=== PATIENT | male | born 1985 | race Hispanic/Latino ===

== ENCOUNTER 2024-02-01 16:21 | Emergency (ER) | payer SELFPAY ==
[2024-02-01] MEDS ORDERED: HYDROCODONE/APAP 5/325 MG TAB ONE (16:36)
[2024-02-01] MEDS ORDERED: DIAZEPAM 5 MG TABLET ONE (16:36)
--- NOTE | 2024-02-01 16:58 | RAD REPORT ---
Stone Protocol CLINICAL INDICATION: Male, 38 years old.FLANK PAIN TECHNIQUE: CT abdomen and pelvis was performed, without IV contrast, as per department protocol using a CT stone protocol. Axial, sagittal and coronal reconstructions were obtained. One or more of the following dose reduction techniques were used: Automated exposure control, adjustment of the mA and/o r kV according to the patient size, and/or iterative reconstruction. Unless otherwise specified, incidental findings do not require dedicated imaging follow-up. [id number]. IV CONTRAST: Not administered. COMPARISON: None FINDINGS: The lack of intravenous contrast limits the sensitivity of this exam for evaluation of solid visceral organs, vascular structures, and retroperitoneum. LOWER CHEST: The visualized lung bases are clear. Mild circumferential thickening of the distal esoph parish. LIVER: Hepatic steatosis. GALLBLADDER/BILE DUCTS: No biliary ductal dilatation.? PANCREAS: No mass, ductal dilation, or gayle-pancreatic fluid. SPLEEN: Normal size. No focal lesion. ADRENALS: Normal; no mass. KIDNEYS AND URETERS: Normal size and contour. No hydronephrosis. URINARY BLADDER: Nonspecific circumferential bladder wall thickening. GASTROINTESTINAL TRACT: Stomach is non-dilated. Small bowel has normal course and caliber. No colonic wall thickening or pericolonic inflammatory changes. PERITONEUM: No free fluid. ABDOMINAL AORTA AND OTHER VESSELS: Normal caliber aorta and IVC. REPRODUCTIVE ORGANS: No pathologic process. MUSCULOSKELETAL: No acute or suspicious osseous abnormality. ADDITIONAL FINDINGS: None. IMPRESSION: No acute or significant abnormalities in the abdomen or pelvis, with evaluation limited by lack of IV contrast. No urinary tract calculi. No appendicitis.
[2024-02-01 17:22] LABS: Specific Gravity > 1.030 (1.005-1.030); Sqamous Epithelial None Seen /HPF (None Seen); Urine Bacteria None Seen /HPF (<20); Urine Bilirubin NEGATIVE (Negative); Urine Blood Negative (Negative); Urine Clarity Clear (Clear); Urine Color Yellow (Yellow); Urine Culture Reflex Order NOT NEEDED; Urine Glucose 1+ (Negative); Urine Ketones TRACE (Negative); Urine Microscopic Reflex YN ORDER UMIC; Urine Mucus Slight /HPF (None Seen); Urine Nitrite NEGATIVE (Negative); Urine Protein 1+ (Negative); Urine RBC <5 /HPF (None Seen); Urine Urobilinogen 1+ (Normal); Urine WBC <5 /HPF (<5); Urine Yeast (Budding) Trace /HPF (None Seen)
--- NOTE | 2024-02-01 17:25 | ER ---
Nurse's Notes [facility] Name: Rony Barba Age: 38 yrs Sex: Male : 1985 Arrival Date: 02/01/2024 Time: 16:21 Bed 4 Private MD: Diagnosis: Low back pain Presentation: 01/31 16:26 Chief complaint: Patient states: low back pain for about a month and is getting worse. ko1 Coronavirus screen: Ebola Screen: No symptoms or risks identified at this time. Initial Sepsis Screen: Does the patient meet any 2 criteria? No. Patient's initial sepsis screen is negative. Does the patient have a suspected source of infection? No. Patient's initial sepsis screen is negative. Risk Assessment: Do you want to hurt yourself or someone else? Patient reports no desire to harm self or others. Onset of symptoms was February 01, 2024. 16:26 Method Of Arrival: Ambulatory ko1 16:26 Acuity: TON 4 ko1 Triage Assessment: 16:30 General: Appears uncomfortable, Behavior is calm, cooperative, appropriate for age. ko1 Pain: Complains of pain in back. Historical: - Allergies: 16:30 No Known Allergies; ko1 - Home Meds: 16:30 None [Active]; ko1 - PMHx: 16:30 Hypertensive disorder; ko1 - PSHx: 16:30 None; ko1 - Immunization history:: Adult Immunizations unknown. - Infectious Disease History:: Denies. - Social history:: Smoking status: Patient denies any tobacco usage or history of. Screenin:39 [facility] ED Fall Risk Assessment (Adult) History of falling in the last 3 months, me1 including since admission No falls in past 3 months (0 pts) Confusion or Disorientation No (0 pts) Intoxicated or Sedated No (0 pts) Impaired Gait No (0 pts) Mobility Assist Device Used No (0 pt) Altered Elimination No (0 pt) Score/Fall Risk Level 0 - 2 = Low Risk Maintained a safe environment, Provided non-skid footwear, Hourly rounding (assess needs \T\ fall precautionary measures) done. Abuse screen: Denies threats or abuse. Nutritional screening: No deficits noted. Tuberculosis screening: No symptoms or risk factors identified. Assessment: 16:39 General: Appears uncomfortable, well groomed, well developed, well nourished, Behavior me1 is calm, cooperative, appropriate for age, Reports low back pain for about a month and is getting worse. Pain: Complains of pain in back Pain does not radiate. Pain currently is 9 out of 10 on a pain scale. Quality of pain is described as crampy, sharp, Pain began about a month ago Is continuous. Neuro: Level of Consciousness is awake, alert, obeys commands, Oriented to person, place, time, situation, Appropriate for age. Cardiovascular: Patient's skin is warm and dry. Respiratory: Airway is patent Respiratory effort is even, unlabored, Respiratory pattern is regular, symmetrical. GI: No signs and/or symptoms were reported involving the gastrointestinal system. : No signs and/or symptoms were reported regarding the genitourinary system. EENT: No signs and/or symptoms were reported regarding the EENT system. Derm: Skin is intact, is healthy with good turgor, Skin is pink, warm \T\ dry. Musculoskeletal: Reports pain in back since about a month ago. Vital Signs: 16:26 BP 161 / 108; Pulse 87; Resp 16; Temp 97.6; Pulse Ox 98% ; ko1 17:29 Pain 5/10; me1 17:29 Pain 5/10; me1 17:35 BP 142 / 78; Pulse 75; Resp 18; Temp 98.7; Pulse Ox 96% ; me1 17:29 Pain Scale: Adult me1 17:29 Pain Scale: Adult me1 ED Course: 16:22 Patient arrived in ED. ra3 16:23 Mary Jo Del Cid FNP-C is [facility]. kb 16:23 Delmar Hoyt MD is Attending Physician. kb 16:30 Triage completed. ko1 16:30 Arm band placed on right wrist. Patient placed in an exam room, Patient notified of ko1 wait time. 16:34 Helga Moreno, ALF is Primary Nurse. me1 16:39 Patient has correct armband on for positive identification. Bed in low position. Call me1 light in reach. Side rails up X2. Provided Education on: POC. Verbalized understanding.. Client placed on continuous cardiac and pulse oximetry monitoring. NIBP monitoring applied. Pulse ox on. NIBP on. 16:39 No provider procedures requiring assistance completed. Patient did not have IV access me1 during this emergency room visit. 16:46 CT Stone Protocol In Process Unspecified. EDMS Administered Medications: 16:37 Drug: HYDROcodone-acetaminophen PO 5 mg-325 mg 1 tabs PO once Route: PO; me1 17:29 Follow up: Pain 5/10 Adult; Response: No adverse reaction; Pain is decreased me1 16:37 Drug: Diazepam PO 5 mg PO once Route: PO; me1 17:29 Follow up: Pain 5/10 Adult; Response: No adverse reaction; Pain is decreased me1 17:34 Drug: Dexamethasone IM 10 mg IM once Route: IM; Site: right gluteus; me1 17:34 Follow up: Response: No adverse reaction me1 Medication: 16:39 VIS not applicable for this client. me1 Outcome: 17:25 Discharge ordered by . kb 17:44 Discharged to home ambulatory, me1 17:44 Condition: stable 17:44 Discharge instructions given to patient, significant other, Instructed on discharge instructions, follow up and referral plans. medication usage, Demonstrated understanding of instructions, follow-up care, medications, Prescriptions given X 3, 17:44 Patient left the ED. me1 Signatures: Dispatcher [employer] EDMS Mary Jo Del Cid, PAN DEVULCANIZER HELPER-C PAN DEVULCANIZER HELPER-Elizabeth Ochoa RN RN ko1 Helga Moreno RN RN me1 Mandy Obando ra3 Corrections: (The following items were deleted from the chart) 16:39 16:26 Chief complaint: Patient states: low back pain for about a month and is getting me1 worse. ko1
--- NOTE | 2024-02-01 17:26 | EDPHYS ---
Physician Documentation [facility] Name: Rony Barba Age: 38 yrs Sex: Male : 1985 Arrival Date: 02/01/2024 Time: 16:21 Bed 4 Private MD: ED Physician Delmar Hoyt HPI: 01/31 18:43 This 38 yrs old Male presents to ER via Ambulatory with complaints of Low Back kb Pain. 18:43 Pt is a 38 year old male who presents for pain to left low back/flank that radiates to kb left buttock. Denies n/v/d. States the pain started one month ago and has been worse this week. Worse with certain movements/positions. Denies urinary symptoms, fever. . Historical: - Allergies: 16:30 No Known Allergies; ko1 - Home Meds: 16:30 None [Active]; ko1 - PMHx: 16:30 Hypertensive disorder; ko1 - PSHx: 16:30 None; ko1 - Immunization history:: Adult Immunizations unknown. - Infectious Disease History:: Denies. - Social history:: Smoking status: Patient denies any tobacco usage or history of. ROS: 18:42 Constitutional: As per HPI kb Exam: 18:42 Constitutional: This is a well developed, well nourished patient who is awake, alert, kb and in no acute distress. Head/Face: Normocephalic, atraumatic. ENT: Moist Mucous membranes Cardiovascular: Regular rate Respiratory: Respirations even and unlabored. No increased work of breathing. Talking in full sentences Abdomen/GI: Soft, non-tender. No distention Skin: Warm, dry with normal turgor. Normal color. MS/ Extremity: Pulses equal, no cyanosis. Neurovascular intact. Full, normal range of motion. Neuro: Awake and alert, GCS 15, oriented to person, place, time, and situation. 18:42 Back: pain, that is mild, of the left low back, Vital Signs: 16:26 BP 161 / 108; Pulse 87; Resp 16; Temp 97.6; Pulse Ox 98% ; ko1 17:29 Pain 5/10; me1 17:29 Pain 5/10; me1 17:35 BP 142 / 78; Pulse 75; Resp 18; Temp 98.7; Pulse Ox 96% ; me1 17:29 Pain Scale: Adult me1 17:29 Pain Scale: Adult me1 MDM: 16:23 Medical Screening Exam initiated kb 18:42 Differential diagnosis: sciatica, Herniated disc UTI, kidney stone. Data reviewed: kb vital signs, nurses notes. Test considered but Not performed: Labs: cbc, cmp considered but no stone on CT, no abd tenderness, afebrile, nontoxic in appearance. . Historians other than the Patient: Spouse/Significant Other: . Counseling: I had a detailed discussion with the patient and/or guardian regarding the historical points, exam findings, and any diagnostic results supporting the discharge/admit diagnosis, lab results, radiology results, the need for outpatient follow up, a family practitioner, to return to the emergency department if symptoms worsen or persist or if there are any questions or concerns that arise at home. 01/31 16:31 Order name: Urinalysis w/ reflexes; Complete Time: 17:24 kb 01/31 16:31 Order name: CT Stone Protocol; Complete Time: 17:00 kb Administered Medications: 16:37 Drug: HYDROcodone-acetaminophen PO 5 mg-325 mg 1 tabs PO once Route: PO; me1 17:29 Follow up: Pain 5/10 Adult; Response: No adverse reaction; Pain is decreased me1 16:37 Drug: Diazepam PO 5 mg PO once Route: PO; me1 17:29 Follow up: Pain 5/10 Adult; Response: No adverse reaction; Pain is decreased me1 17:34 Drug: Dexamethasone IM 10 mg IM once Route: IM; Site: right gluteus; me1 17:34 Follow up: Response: No adverse reaction me1 Disposition Summary: 02/01/24 17:25 Discharge Ordered Notes: Location: Home Condition: Stable Diagnosis - Low back pain kb Followup: kb - With: Emergency Department - When: As needed - Reason: Worsening of condition Followup: kb - With: Private Physician - When: 2 - 3 days - Reason: Recheck today's complaints, Continuance of care, Re-evaluation by your physician Discharge Instructions: - Discharge Summary Sheet kb - Musculoskeletal Pain kb - Sciatica, [id number] kb Forms: - Medication Reconciliation Form kb - Antibiotic Education kb - Prescription Opioid Use kb - Patient Portal Instructions kb - Leadership Thank You Letter kb Prescriptions: - Prednisone 20 mg Oral Tablet - take 1 tablet ORAL route once daily for 5 days; 5 tablet; Refills: 0, Product kb Selection Permitted - Diclofenac Sodium 75 mg Oral tablet, delayed release (enteric coated) - take 1 tablet ORAL route 2 times per day As needed; 30 tablet; Refills: 0, kb Product Selection Permitted - orphenadrine citrate 100 mg Oral Tablet Sustained Release - take 1 tablet ORAL route 2 times per day As needed; 20 tablet; Refills: 0, kb Product Selection Permitted Signatures: Dispatcher [employer] EDMary Jo Thomason FNP-C FNP-Ckb Oliver, Kathy, RN RN ko1 Helga Moreno RN RN me1 Corrections: (The following items were deleted from the chart) 16: 16:31 Urinalysis+U.LAB.BRZ ordered. EDMS EDMS 16:31 16:31 Stone Protocol+CT.RAD.BRZ ordered. EDMS EDMS
[2024-02-01] MEDS ORDERED: dexAMETHasone 10 MG/ML VIAL ONE (17:31)
[2024-02-01 18:05] VITALS: BP 142/78; TEMP 98.7; O2SAT 96
== END 2024-02-01 17:44 | disposition home or self-care (01) ==
LOC: ER 16:21
DX: M54.50 Low back pain, unspecified (principal)
CPT/HCPCS: 74176; 76377; 81001; 96372; 99284; J1100

== ENCOUNTER 2024-02-21 21:07 | Emergency (ER) | payer SELFPAY ==
--- NOTE | 2024-02-21 21:54 | RAD REPORT ---
EXAMINATION: ONE VIEW CHEST XR CLINICAL INDICATION: CHEST PAIN TECHNIQUE: Frontal chest projection is submitted. Examination is limited by patient positioning and t echnique. COMPARISON: No prior exam. FINDINGS: The lungs are well inflated and clear. The heart is upper limit of normal in size. No displaced fract ures identified. IMPRESSION: No acute intrathoracic abnormalities.
[2024-02-21 22:17] LABS: Specific Gravity > 1.030 (1.005-1.030); Sqamous Epithelial None Seen /HPF (None Seen); Urine Bacteria None Seen /HPF (<20); Urine Bilirubin NEGATIVE (Negative); Urine Blood Trace (Negative); Urine Clarity Clear (Clear); Urine Color Light-Yellow (Yellow); Urine Culture Reflex Order NOT NEEDED; Urine Glucose 4+ (Over) (Negative); Urine Ketones TRACE (Negative); Urine Micro Reflex YN NO BILL MICROSCOPIC; Urine Nitrite NEGATIVE (Negative); Urine Protein TRACE (Negative); Urine RBC <5 /HPF (None Seen); Urine Urobilinogen Normal (Normal); Urine WBC <5 /HPF (<5); Urine pH 5.5 (5.0-7.0)
[2024-02-21 22:30] LABS: ALT/SGPT 103 U/L (16-61); Albumin 3.7 g/dL (3.4-5.0); Albumin/Globulin Ratio 0.9 (1.1-1.8); Alkaline Phosphatase 108 U/L (45-117); BUN Blood Urea Nitrogen 21 mg/dL (7-18); Bicarbonate 26 mEq/L (21-32); Bilirubin Total 0.5 mg/dL (0.2-1.0); Globulin 4.2 g/dL (2.3-3.5); Glomerular Filtration Rate 87 ml/min (=/>90); Glucose Level 281 mg/dL (74-106); Protein, Total 7.9 g/dL (6.4-8.2); Sodium Level 136 mEq/L (136-145); Troponin High Sensitivity 7.1 pg/mL (<58.9)
[2024-02-21 22:31] LABS: AST/SGOT 43 U/L (15-37); Bilirubin Direct < 0.2 mg/dL (0-0.2); Bilirubin Indirect, Calculated 0.3 mg/dL (0.2-0.8); NT PRO-BNP < 5 pg/mL (<125)
[2024-02-21] MEDS ORDERED: LOSARTAN POTASSIUM 50 MG TABLET ONE (22:32)
[2024-02-21] MEDS ORDERED: NA CHLORIDE 0.9% 2,000 ML ONE (22:32)
[2024-02-21 22:39] LABS: Thyroid Stimulating Hormone 2.3 uIU/mL (0.358-3.740)
[2024-02-21 22:45] LABS: PT Prothrombin Time 11.1 SECONDS (9.4-12.5); Protime INR 0.99
[2024-02-21 22:47] LABS: Absolute Basophils 0.1 K/uL (0-0.5); Absolute Eosinophils 0.6 K/uL (0-0.5); Absolute Lymphocytes (CBC) 2.8 K/uL (0.7-4.9); Absolute Monocytes 0.5 K/uL (0.1-1.3); Absolute Neutrophil 3.5 K/uL (1.8-8.0); Basophils % 1.3 % (0-1.3); Eosinophils % 8.4 % (0-4.4); Hematocrit 48.2 % (39.6-49.0); Hemoglobin 16.8 g/dL (13.6-17.9); Lymphocytes % 36.9 % (15.3-44.8); MCH 30.6 pg (27.0-35.0); MCHC 34.8 g/dL (32.0-36.0); MCV 87.9 fL (80-100); MPV 9.3 fL (7.6-11.3); Monocytes % 6.6 % (3.3-12.3); Neutrophils % 46.8 % (41.7-73.7); Nucleated Red Blood Cells % 0.3 % (0-0); Platelets 268 thou/uL (152-406); RBC Red Blood Cell Count 5.49 M/uL (4.33-5.43); Red Cell Distribution Width 12.3 % (12.1-15.2)
--- NOTE | 2024-02-21 23:48 | ER ---
Nurse's Notes [facility] Name: Rony Barba Age: 38 yrs Sex: Male : 1985 Arrival Date: 02/21/2024 Time: 21:07 Bed 7 Private MD: Diagnosis: Type 2 diabetes mellitus with hyperglycemia;Essential (primary) hypertension;Diabetes mellitus type II, new onset Presentation: 02/20 21:34 Chief complaint: Patient states: sent from urgent care from high BP and blood sugar. lg3 BGL at triage 284. Coronavirus screen: Client denies travel out of the [place] in the last 14 days. At this time, the client does not indicate any symptoms associated with coronavirus-19. Ebola Screen: No symptoms or risks identified at this time. Initial Sepsis Screen: Does the patient meet any 2 criteria? No. Patient's initial sepsis screen is negative. Does the patient have a suspected source of infection? No. Patient's initial sepsis screen is negative. Risk Assessment: Do you want to hurt yourself or someone else? Patient reports no desire to harm self or others. Onset of symptoms is unknown. 21:34 Method Of Arrival: Ambulatory lg3 21:34 Acuity: TON 3 lg3 Triage Assessment: 21:35 General: Appears in no apparent distress. comfortable, Behavior is calm, cooperative. lg3 Pain: Denies pain. EENT: No deficits noted. No signs and/or symptoms were reported regarding the EENT system. Neuro: No deficits noted. Dahl Agitation-Sedation Scale (RASS): 0 - Alert and Calm Level of Consciousness is awake, alert, obeys commands, Oriented to person, place, time, situation. Cardiovascular: No deficits noted. Denies chest pain. Respiratory: No deficits noted. Airway is patent Respiratory effort is even, unlabored, Respiratory pattern is regular, symmetrical. GI: No deficits noted. No signs and/or symptoms were reported involving the gastrointestinal system. Abdomen is round non-distended. : No deficits noted. No signs and/or symptoms were reported regarding the genitourinary system. Derm: No deficits noted. No signs and/or symptoms reported regarding the dermatologic system. Skin is intact, is healthy with good turgor, Skin is dry, Skin is normal, Skin temperature is warm. Musculoskeletal: No deficits noted. No signs and/or symptoms reported regarding the musculoskeletal system. Circulation, motion, and sensation intact. Range of motion: intact in all extremities. Historical: - Allergies: 21:35 No Known Allergies; lg3 - Home Meds: 21:35 None [Active]; lg3 - PMHx: 21:35 Hypertensive disorder; hyperlipidemia (Hypertensive disorder); lg3 - PSHx: 21:35 None; lg3 - Immunization history:: Adult Immunizations up to date. - Infectious Disease History:: Denies. - Social history:: Smoking status: Patient reports the use of cigarette tobacco products, smokes one-half pack cigarettes per day, Patient uses alcohol, weekly. Patient/guardian denies using street drugs. Screenin:14 [facility] ED Fall Risk Assessment (Adult) History of falling in the last 3 months, lg3 including since admission No falls in past 3 months (0 pts) Confusion or Disorientation No (0 pts) Intoxicated or Sedated No (0 pts) Impaired Gait No (0 pts) Mobility Assist Device Used No (0 pt) Altered Elimination No (0 pt) Score/Fall Risk Level 0 - 2 = Low Risk Oriented to surroundings, Maintained a safe environment, Educated pt \T\ family on fall prevention, incl call for assistance when getting out of bed, Assessed \T\ reinforced patient's understanding of fall precautions, Provided non-skid footwear. Abuse screen: Denies threats or abuse. Denies injuries from another. Nutritional screening: No deficits noted. Tuberculosis screening: No symptoms or risk factors identified. Assessment: 21:35 General: see triage assessment. lg3 23:11 Reassessment: Patient appears in no apparent distress at this time. No changes from lg3 previously documented assessment. Patient and/or family updated on plan of care and expected duration. Pain level reassessed. Patient is alert, oriented x 3, equal unlabored respirations, skin warm/dry/pink. Patient denies pain at this time. 02/21 00:33 Reassessment: Patient appears in no apparent distress at this time. No changes from lg3 previously documented assessment. Patient and/or family updated on plan of care and expected duration. Pain level reassessed. Patient is alert, oriented x 3, equal unlabored respirations, skin warm/dry/pink. Patient denies pain at this time. Vital Signs: 02/20 21:34 BP 150 / 108; Pulse 86; Resp 16 S; Temp 98.1(O); Pulse Ox 100% on R/A; Weight 106.59 kg lg3 (R); Height 5 ft. 8 in. (R); Pain 0/10; 23:11 BP 146 / 104; Pulse 89; Resp 17 S; Pulse Ox 100% on R/A; lg3 02/21 00:33 BP 135 / 88; Pulse 81; Resp 16 S; Pulse Ox 99% on R/A; lg3 02/20 21:34 Body Mass Index 35.73 (106.59 kg, 172.72 cm) 3 02/20 21:34 Pain Scale: Adult lg3 Eugene Coma Score: 06:55 Eye Response: spontaneous(4). Motor Response: obeys commands(6). Verbal Response: sp4 oriented(5). Total: 15. ED Course: 02/20 21:23 Patient arrived in ED. gm2 21:24 Johan Betancur MD is Attending Physician. sp4 21:35 Triage completed. lg3 21:35 Arm band placed on right wrist. lg3 21:51 XRAY Chest (1 view) In Process Unspecified. EDMS 22:10 Inserted saline lock: 20 gauge in right antecubital area, using aseptic technique. af3 Blood collected. Flushed with 10 mL NS. 22:14 Patient has correct armband on for positive identification. Placed in gown. Bed in low lg3 position. Call light in reach. Side rails up X 1. Client placed on continuous cardiac and pulse oximetry monitoring. NIBP monitoring applied. reverse engineer on. Door closed. Noise minimized. Warm blanket given. Pillow given. Family accompanied patient. 22:14 Patient maintains SpO2 saturation greater than 95% on room air. lg3 22:16 Basic Metabolic Panel Sent. lg3 22:16 CBC with Diff Sent. lg3 22:16 LFT's Sent. lg3 22:16 NT PRO-BNP Sent. lg3 22:16 PT-INR Sent. lg3 22:16 Troponin HS Sent. lg3 22:16 Urinalysis W/Microscopic Sent. lg3 22:26 EKG done, by mechanical laboratory technician. af3 22:30 KAHLIL GATES, ALF is Primary Nurse. dd2 23:47 Anshul Doshi DO is Referral Physician. sp4 01/03 00:33 No provider procedures requiring assistance completed. IV discontinued, intact, lg3 bleeding controlled, No redness/swelling at site. Pressure dressing applied. Administered Medications: 02/20 22:43 Drug: NS 0.9% IV 1000 ml IV at 1000 ml once; to be given as a bolus over 60 minutes dd2 Route: IV; Rate: 1000 ml; Site: right antecubital; 02/21 00:34 Follow up: Response: No adverse reaction; IV Status: Completed infusion; IV Intake: lg3 1000ml 02/20 22:43 Drug: NS 0.9% IV 1000 ml IV at 125 ml/hr Per protocol; to be given as a bolus over 60 dd2 minutes Route: IV; Rate: 125 ml/hr; Site: right antecubital; 02/21 00:34 Follow up: IV Status: Infusion continued upon admission lg3 00:35 Follow up: Response: No adverse reaction; IV Status: Completed infusion; IV Intake: lg3 500ml 02/20 22:43 Drug: Losartan PO 50 mg PO once Route: PO; dd2 02/21 00:34 Follow up: Response: No adverse reaction; Blood pressure is lowered lg3 Medication: 00:33 VIS not applicable for this client. lg3 Intake: 00:34 IV: 1000ml; Total: 1000ml. lg3 00:35 IV: 500ml; Total: 1500ml. lg3 Outcome: 02/20 23:48 Discharge ordered by . sp4 02/21 00:33 Discharged to home ambulatory, with significant other, lg3 Condition: stable Discharge instructions given to patient, Instructed on discharge instructions, follow up and referral plans. medication usage, Demonstrated understanding of instructions, follow-up care, medications, Prescriptions given X 2, 00:35 Patient left the ED. lg3 Signatures: Dispatcher [employer] EDNicci Grajeda RN RN lg3 Johan Betancur MD MD sp4 Zuleika Torres Ashley KAHLIL EVERETT RN RN dd2 Corrections: (The following items were deleted from the chart) 02/20 21:38 21:35 PMHx: high triglicerides (Hypertensive disorder); lg3 lg3
--- NOTE | 2024-02-21 23:48 | EDPHYS ---
Physician Documentation [facility] Name: Rony Barba Age: 38 yrs Sex: Male : 1985 Arrival Date: 02/21/2024 Time: 21:07 Bed 7 Private MD: ED Physician Johan Betancur HPI: 02/20 21:27 This 38 yrs old Male presents to ER via Unassigned with complaints of High sp4 Blood Sugar, High Blood Pressure, SENT OVER BY NEXT LEVEL. 02/21 06:58 38-year-old male presents with complaint of elevated blood sugar persistent thirst and sp4 generalized malaise. Patient was sent here by the urgent clinic next level. Historical: - Allergies: 02/20 21:35 No Known Allergies; lg3 - Home Meds: 21:35 None [Active]; lg3 - PMHx: 21:35 Hypertensive disorder; hyperlipidemia (Hypertensive disorder); lg3 - PSHx: 21:35 None; lg3 - Immunization history:: Adult Immunizations up to date. - Infectious Disease History:: Denies. - Social history:: Smoking status: Patient reports the use of cigarette tobacco products, smokes one-half pack cigarettes per day, Patient uses alcohol, weekly. Patient/guardian denies using street drugs. ROS: 02/21 06:57 Constitutional: Negative for fever, chills, and weight loss, positive for persistent sp4 thirst and generalized malaise All other systems are negative, Exam: 06:55 Constitutional: This is a well developed, well nourished patient who is awake, alert, sp4 and in no acute distress. Head/Face: Normocephalic, atraumatic. Eyes: Pupils equal round and reactive to light, extra-ocular motions intact. Lids and lashes normal. Conjunctiva and sclera are not injected. Cornea within normal limits. Periorbital areas with no swelling, redness, or edema. ENT: Nares patent. No nasal discharge, no septal abnormalities noted. Tympanic membranes are normal and external auditory canals are clear. Oropharynx with no redness, swelling, or masses, exudates, or evidence of obstruction, uvula midline. Mucous membranes moist. Neck: Trachea midline, no thyromegaly or masses palpated, and no cervical lymphadenopathy. Supple, full range of motion without nuchal rigidity, or vertebral point tenderness. Chest/axilla: Normal chest wall appearance and motion. Nontender with no deformity. No lesions are appreciated. Cardiovascular: Regular rate and rhythm with a normal S1 and S2. No gallops, murmurs, or rubs. Normal PMI, no JVD. No pulse deficits. Respiratory: Lungs have equal breath sounds bilaterally, clear to auscultation and percussion. No rales, rhonchi or wheezes noted. No increased work of breathing, no retractions or nasal flaring. Abdomen/GI: Soft, with normal bowel sounds. No distension or tympany. No guarding or rebound. No evidence of tenderness throughout. Back: No spinal tenderness. No costovertebral tenderness. Skin: Warm, dry with normal turgor. Normal color with no rashes, no lesions, and no evidence of cellulitis. MS/ Extremity: Pulses equal, no cyanosis. Neurovascular intact. Full, normal range of motion. Neuro: Awake and alert, GCS 15, oriented to person, place, time, and situation. Cranial nerves II-XII grossly intact. Motor strength 5/5 in all extremities. Sensory grossly intact. Psych: Awake, alert, with orientation to person, place and time. Behavior, mood, and affect are within normal limits 06:55 ECG was reviewed by the Attending Physician. EKG at 2220 normal sinus rhythm rate 80. Vital Signs: 02/20 21:34 BP 150 / 108; Pulse 86; Resp 16 S; Temp 98.1(O); Pulse Ox 100% on R/A; Weight 106.59 kg lg3 (R); Height 5 ft. 8 in. (R); Pain 0/10; 23:11 BP 146 / 104; Pulse 89; Resp 17 S; Pulse Ox 100% on R/A; 3 02/21 00:33 BP 135 / 88; Pulse 81; Resp 16 S; Pulse Ox 99% on R/A; 3 02/20 21:34 Body Mass Index 35.73 (106.59 kg, 172.72 cm) [facility] 02/20 21:34 Pain Scale: Adult lg3 Eugene Coma Score: 06:55 Eye Response: spontaneous(4). Motor Response: obeys commands(6). Verbal Response: sp4 oriented(5). Total: 15. MDM: 02/20 21:29 Medical Screening Exam initiated [facility] 02/21 06:57 Differential diagnosis: DKA, hyperglycemia, hyperthyroidism, hypothyroidism, new onset sp4 diabetes. Data reviewed: vital signs, nurses notes, lab test result(s), CBC, electrolytes, hepatic panel. Consideration of Admission/Observation Escalation of care including admission/observation considered. ED course: Patient has new onset diabetes. Patient was provided instruction of diabetes management and proper primary care physician follow-up. Also patient was started on low-dose losartan for elevated blood pressures.. 02/20 21:28 Order name: Basic Metabolic Panel; Complete Time: 23:22 [facility] 02/20 21:28 Order name: CBC with Diff; Complete Time: 23:22 [facility] 02/20 21:28 Order name: LFT's; Complete Time: 23:22 [facility] 02/20 21:28 Order name: NT PRO-BNP; Complete Time: 23:22 [facility] 02/20 21:28 Order name: PT-INR; Complete Time: 23:22 [facility] 02/20 21:28 Order name: Troponin HS; Complete Time: 23:22 [facility] 02/20 21:37 Order name: TSH; Complete Time: 23:22 [facility] 02/20 21:37 Order name: T4 Free; Complete Time: 23:22 [facility] 02/20 21:45 Order name: Glucose, Ancillary Testing; Complete Time: 22:02 [facility] 02/20 22:02 Order name: Urinalysis W/Microscopic; Complete Time: 23:22 [facility] 02/20 21:28 Order name: XRAY Chest (1 view); Complete Time: 22:02 [facility] 02/20 21:28 Order name: EKG; Complete Time: 21:29 [facility] 02/20 21:28 Order name: Cardiac monitoring; Complete Time: 22:16 [facility] 02/20 21:28 Order name: EKG - Nurse/Tech; Complete Time: 22:16 [facility] 02/20 21:28 Order name: IV Saline Lock; Complete Time: 22:09 [facility] 02/20 21:28 Order name: Labs collected and sent; Complete Time: 22:09 [facility] 02/20 21:28 Order name: O2 Per Protocol; Complete Time: 22:16 [facility] 02/20 21:28 Order name: O2 Sat Monitoring; Complete Time: 22:16 [facility] EC/02 22:20 Rate is 80 beats/min. Rhythm is regular, Normal Sinus Rhythm. QRS [place] is Normal. MD sp4 interval is normal. QRS interval is normal. QT interval is normal. No Q waves. T waves are Normal. No ST changes noted. Clinical impression: No evidence of ischemia. Interpreted by me. Reviewed by me. Administered Medications: 22:43 Drug: NS 0.9% IV 1000 ml IV at 1000 ml once; to be given as a bolus over 60 minutes dd2 Route: IV; Rate: 1000 ml; Site: right antecubital; 02/21 00:34 Follow up: Response: No adverse reaction; IV Status: Completed infusion; IV Intake: lg3 1000ml 02/20 22:43 Drug: NS 0.9% IV 1000 ml IV at 125 ml/hr Per protocol; to be given as a bolus over 60 dd2 minutes Route: IV; Rate: 125 ml/hr; Site: right antecubital; 02/21 00:34 Follow up: IV Status: Infusion continued upon admission lg3 00:35 Follow up: Response: No adverse reaction; IV Status: Completed infusion; IV Intake: lg3 500ml 02/20 22:43 Drug: Losartan PO 50 mg PO once Route: PO; dd2 02/21 00:34 Follow up: Response: No adverse reaction; Blood pressure is lowered lg3 Disposition Summary: 02/21/24 23:48 Discharge Ordered Notes: Location: Home sp4 Problem: new sp4 Symptoms: have improved sp4 Condition: Stable sp4 Diagnosis - Type 2 diabetes mellitus with hyperglycemia sp4 - Essential (primary) hypertension sp4 - Diabetes mellitus type II, new onset sp4 Followup: sp4 - With: Anshul Doshi DO - When: 7 - 10 days - Reason: Recheck today's complaints Discharge Instructions: - Discharge Summary Sheet sp4 - Type 2 Diabetes Mellitus, Diagnosis, Adult sp4 - Hypertension, Adult, [id number] sp4 Forms: - Patient Portal Instructions sp4 Prescriptions: - losartan 50 mg Oral tablet - take 1 tablet ORAL route daily; 90 tablet; Refills: 0, Product Selection sp4 Permitted - Metformin 1,000 mg Oral tablet - take 1 tablet ORAL route every 12 hours with morning and evening meals; 180 sp4 tablet; Refills: 0, Product Selection Permitted Signatures: Dis[facility] Nicci Encarnacion RN RN lg3 Johan Betancur MD MD sp4 KAHLIL GATES RN RN dd2 Corrections: (The following items were deleted from the chart) 02/20 21 21:29 BASIC METABOLIC PANEL+C.LAB.BRZ ordered. EDMS EDMS 21: CBC+H.LAB.BRZ ordered. EDMS EDMS 21:29 HEPATIC FUNCTION+C.LAB.BRZ ordered. EDMS EDMS 21:29 PROBNP+C.LAB.BRZ ordered. EDMS EDMS 21:29 PROTIME (+INR)+COAG.LAB.BRZ ordered. EDMS EDMS 21:29 Troponin High Sensitivity+C.LAB.BRZ ordered. EDMS EDMS 21: 21:35 PMHx: high triglicerides (Hypertensive disorder); lg3 lg3 22:02 22:02 Urinalysis W/Microscopic+U.LAB.BRZ ordered. EDMS EDMS
[2024-02-22 07:59] VITALS: TEMP 98.1
[2024-02-22 08:02] VITALS: BP 135/88; O2SAT 99
--- NOTE | 2024-02-22 12:40 | EKG ---
Test Date: 2024-02-21 Test Time: 22:20:24 Marzipan Maker: AF MEASUREMENT RESULTS: Intervals: Rate: 80 ND: 148 QRSD: 84 QT: 352 QTc: 405 [place]: P: 57 ND: 148 QRS: 53 T: 39 INTERPRETIVE STATEMENTS: Normal sinus rhythm Nonspecific ST and T wave abnormality Abnormal ECG No previous ECG available for comparison Electronically Signed On 02-22-24 12:39:10 DETECTIVE AND INTELLIGENCE ANALYST by Rob Osuna
== END 2024-02-22 00:35 | disposition home or self-care (01) ==
LOC: ER 21:07
DX: E11.65 Type 2 diabetes mellitus with hyperglycemia (principal); I10 Essential (primary) hypertension
CPT/HCPCS: 36415; 71045; 80048; 80076; 81001; 82947; 83880; 84439; 84443; 84484; 85025; 85610; 93005; 96360; 96361; 99285; J7030